=== PATIENT | male | born 1940 | race Caucasian/White ===

== ENCOUNTER 2019-09-17 15:39 | Emergency (ER) | payer MEDICARE, BC ==
[2019-09-17] MEDS ORDERED: Ondansetron 4 MG/2 ML SDV IVPUSH ONE (15:52)
[2019-09-17] MEDS ORDERED: Sodium Chloride 0.9% 1,000 ML IV ONE (15:52)
[2019-09-17] MEDS ORDERED: Ketorolac 30 MG/ML SDV IVPUSH ONE (15:53)
--- NOTE | 2019-09-17 15:55 | EDM.PDOC ---
ED HPI GENERAL MEDICAL PROBLEM - General Chief Complaint: Genitourinary Problem Stated Complaint: L SIDE PAIN Time Seen by Provider: 09/17/19 15:49 Source of Information: Reports: Patient History Limitations: Reports: No Limitations - History of Present Illness Onset: Today Onset Date: 09/17/19 Onset Time: 03:00 Duration: Getting Worse Location: Reports: Abdomen, Back (L flank) Quality: Reports: Stabbing Severity: Severe Associated Symptoms: Reports: Nausea/Vomiting. Denies: Fever/Chills Left Flank Pain Score (Numeric/FACES): 10 - Related Data Allergies Allergy/AdvReac Type Severity Reaction Status Date / Time No Known Allergies Allergy Verified 09/17/19 15:57 Home Meds: Home Meds Abriaterone Acetate 250 Mg 4 cap PO DAILY 09/17/19 [History] Aspirin [Aspir 81] 81 mg PO DAILY 09/17/19 [History] Atrovastatin Calcium 20 Mg 20 mg PO BEDTIME 09/17/19 [History] Calcium Carbonate/Vitamin D3 [Calcium 600 + Vit D Tablet] 1 each PO DAILY 09/17/19 [History] Metoprolol Tartrate 25 mg PO BID 09/17/19 [History] Omeprazole 40 mg PO ACBREAKFAST 09/17/19 [History] lisinopriL [Lisinopril] 10 mg PO DAILY 09/17/19 [History] predniSONE 5 mg PO BID 09/17/19 [History] ED ROS GENERAL - Review of Systems Review Of Systems: See Below Constitutional: Denies: Fever GI/Abdominal: Reports: Abdominal Pain : Reports: Flank Pain (L). Denies: Dysuria, Hematuria ED EXAM, RENAL/ - Physical Exam Exam: See Below Exam Limited By: No Limitations General Appearance: Alert, WD/WN, Severe Distress Ears: Normal External Exam Nose: Normal Inspection Throat/Mouth: Other (Dry) Neck: Normal Inspection Respiratory/Chest: No Respiratory Distress GI/Abdominal: Soft, Non-Tender Back Exam: CVA Tenderness (L) Course - Vital Signs Text/Narrative:: Initial differential diagnosis: Kidney stone, pyelonephritis, extreme back strain. CT scan shows massive distention of the collecting system of the left kidney with air consistent with infected hydronephrosis and rupture of the collecting system . We'll start IV antibiotic here and request transfer to [facility]. Last Recorded V/S: Last Vital Signs Temp 37.3 C 09/17/19 15:53 Pulse 89 09/17/19 17:34 Resp 14 09/17/19 16:58 BP 107/63 09/17/19 17:34 Pulse Ox 93 L 09/17/19 17:34 - Orders/Labs/Meds Orders: Active Orders 24 hr Category Date Time Status UA W/MICROSCOPIC [URIN] Urgent Lab 09/17/19 15:52 Ordered Labs: Laboratory Tests 09/17/19 09/17/19 09/17/19 Range/Units 15:52 16:05 16:05 WBC 14.8 H (4.5-11.0) K/uL RBC 5.55 (4.30-5.90) M/uL Hgb 14.8 (12.0-15.0) g/dL Hct 46.7 (40.0-54.0) % MCV 84 (80-98) fL MCH 27 (27-31) pg MCHC 32 (32-36) % Plt Count 223 (150-400) K/uL PT 10.7 (9.5-12.0) sec INR 0.98 (0.80-1.20) Sodium 139 L (140-148) mmol/L Potassium 3.8 (3.6-5.2) mmol/L Chloride 105 (100-108) mmol/L Carbon Dioxide 23 (21-32) mmol/L Anion Gap 14.8 H (5.0-14.0) mmol/L BUN 24 H (7-18) mg/dL Creatinine 1.6 H (0.8-1.3) mg/dL Est Cr Clr Drug Dosing 40.53 mL/min Estimated GFR (MDRD) 42 L (>60) Glucose 192 H (74-106) mg/dL Lactic Acid (0.4-2.0) mmol/L Calcium 8.3 L (8.5-10.1) mg/dL Total Bilirubin 0.6 (0.2-1.0) mg/dL AST 13 L (15-37) U/L ALT 16 (12-78) U/L Alkaline Phosphatase 129 H (46-116) U/L Total Protein 6.2 L (6.4-8.2) g/dL Albumin 3.0 L (3.4-5.0) g/dL Globulin 3.2 (2.3-3.5) g/dL Albumin/Globulin Ratio 0.9 L (1.2-2.2) 09/17/19 Range/Units 16:05 WBC (4.5-11.0) K/uL RBC (4.30-5.90) M/uL Hgb (12.0-15.0) g/dL Hct (40.0-54.0) % MCV (80-98) fL MCH (27-31) pg MCHC (32-36) % Plt Count (150-400) K/uL PT (9.5-12.0) sec INR (0.80-1.20) Sodium (140-148) mmol/L Potassium (3.6-5.2) mmol/L Chloride (100-108) mmol/L Carbon Dioxide (21-32) mmol/L Anion Gap (5.0-14.0) mmol/L BUN (7-18) mg/dL Creatinine (0.8-1.3) mg/dL Est Cr Clr Drug Dosing mL/min Estimated GFR (MDRD) (>60) Glucose (74-106) mg/dL Lactic Acid 2.2 H (0.4-2.0) mmol/L Calcium (8.5-10.1) mg/dL Total Bilirubin (0.2-1.0) mg/dL AST (15-37) U/L ALT (12-78) U/L Alkaline Phosphatase (46-116) U/L Total Protein (6.4-8.2) g/dL Albumin (3.4-5.0) g/dL Globulin (2.3-3.5) g/dL Albumin/Globulin Ratio (1.2-2.2) Meds: Medications Discontinued Medications Generic Name Dose Route Start Last Admin Trade Name Freq PRN Reason Stop Dose Admin Hydromorphone HCl 0.5 mg 09/17/19 16:32 09/17/19 16:40 Dilaudid IVPUSH 09/17/19 16:33 0.5 mg ONETIME ONE Administration Sodium Chloride 1,000 mls @ 999 mls/hr 09/17/19 15:52 09/17/19 16:01 Normal Saline IV 09/17/19 16:52 999 mls/hr .BOLUS ONE Administration Ceftriaxone Sodium 1 gm/ 50 mls @ 100 mls/hr 09/17/19 17:15 09/17/19 17:22 Sodium Chloride IV 09/17/19 17:44 100 mls/hr ONETIME ONE Administration Ketorolac Tromethamine 30 mg 09/17/19 15:53 09/17/19 16:01 Toradol IVPUSH 09/17/19 15:54 30 mg ONETIME ONE Administration Ondansetron HCl 4 mg 09/17/19 15:52 09/17/19 16:01 Zofran IVPUSH 09/17/19 15:53 4 mg ONETIME ONE Administration Departure - Departure Time of Disposition: 17:57 Disposition: DC/Tfer to [facility] Clinical Impression: Kidney stone, Pyelonephritis - Discharge Information Referrals: PCP,None [Primary Care Provider] - Forms: ED Department Discharge Sepsis Event Note (ED) - Focused Exam Vital Signs: Vital Signs Temp Pulse Resp BP Pulse Ox 09/17/19 17:34 89 107/63 93 L 09/17/19 16:58 86 14 126/74 91 L 09/17/19 15:53 37.3 C 85 22 H 140/86 92 L - My Orders Last 24 Hours: My Active Orders 09/17/19 15:52 UA W/MICROSCOPIC [URIN] Urgent - Assessment/Plan Last 24 Hours: My Active Orders 09/17/19 15:52 UA W/MICROSCOPIC [URIN] Urgent
[2019-09-17] MEDS ORDERED: HYDROmorphone 0.5 MG/0.5 ML Syringe IVPUSH ONE (16:32)
--- NOTE | 2019-09-17 16:59 | CRLCT ---
INDICATION: Left flank pain. Possible calculus. COMPARISON: None available TECHNIQUE: CT examination of the abdomen and pelvis was performed without contrast enhancement using 3 mm thick axial sections from the lung bases through the pubic symphysis. Oral contrast was not administered. Please note that all CT scans at this facility use dose modulation, iterative reconstruction, and/or weight-based dosing when appropriate to reduce radiation dose to as low as reasonably achievable. FINDINGS: There is massive dilatation of the left collecting system containing gas with dissection of gas posteriorly into the interpolar renal parenchyma and posterior perinephric space. There is moderate posterior perinephric soft tissue stranding around the gas. The findings are that of an infected hydronephrotic collecting system with rupture into the perinephric space through the renal parenchyma. There is a small amount of free fluid inferior and posterior to the spleen associated with the left collecting system rupture. There is moderate dilatation of the left ureter extending to a Steinstrasse in the left UVJ, with 4 calculi measuring 3-4 millimeters in caliber immediately adjacent to each other. The left renal parenchyma is prominently thinned around the distended collecting system. There are several nonobstructive calculi located in the lower pole calices of the left kidney as well as a few nonobstructive calculi in the dependent portion of the dilated renal pelvis. In the abdomen, the unenhanced liver has a nonspecific 8 millimeter low-density region in the posterior-lateral subcapsular posterior segment of the right lobe of the liver, segment 6. This is probably a cyst. The rest of the liver is normal in appearance. The spleen, pancreas, and adrenals are normal in appearance. The right kidney has a mildly high density nodule in the anterior-lateral interpolar cortex measuring 10 millimeters in diameter, probably a high-density cyst. There is mild right hydronephrosis with mild dilatation of the right renal pelvis, without dilatation of the right ureter, findings of mild right UPJ stenosis. There is no sign of any right-sided renal or ureteral calculi. There is mild cholelithiasis, with a few small dependent calcified gallstones in the gallbladder. There is no sign of acute cholecystitis, with no sign of gallbladder wall thickening or pericholecystic fluid. The abdominal aorta is normal in caliber with no sign of dilatation. There is no sign of retroperitoneal mass or adenopathy. The stomach, loops of small bowel, and colon in the abdomen are normal in appearance. There is a tiny fat containing periumbilical hernia. In the pelvis, the appendix is nonvisualized, but there is no sign of an inflammatory process in the area of the appendix. The loops of small bowel and colon in the pelvis are normal in appearance. The prostate is absent, with multiple surgical clips seen in the prostate bed. There is no sign of any residual mass in the area of the prostate bed. The urinary bladder is normal in appearance. There is no sign of pelvic or inguinal mass or adenopathy. There is no sign of free air in the abdomen. There is no sign of any free air or free fluid in the pelvis. Pelvis. There is mild patchy and linear atelectasis in the posterior lung bases. There is a noncalcified 8 millimeter pleural nodule in the posterior-lateral right lower lobe, probably an area of scarring from previous inflammatory disease. There is moderate sclerosis of the posterior right pubic symphysis, inferior left femoral head, and right inferior pubic ramus consistent with metastatic prostate carcinoma. A small sclerotic lesion is seen in the left L2 vertebral body consistent with a metastatic lesion or bone island. IMPRESSION: Massive distention of the collecting system of the left kidney with air, consistent with infected hydronephrosis. Air extends posteriorly through the interpolar renal parenchyma to streaky air and fluid in the posterior perinephric space, consistent with rupture of the collecting system. Small amount of free fluid in the left abdomen adjacent to the inferior spleen. No signs of any free air in the abdomen or free fluid or free air in the pelvis. Moderate dilatation of the left ureter extending to Steinstrasse of the UVJ, with 4 calculi measuring 3-4 millimeters in diameter located adjacent to each other at the UVJ. CT of the abdomen shows several other nonobstructive calculi in the left renal collecting system and dilated left renal pelvis. Right kidney has a small probable high-density cyst mild right UPJ stenosis. Mild cholelithiasis without acute cholecystitis. CT of the pelvis shows changes of prostatectomy with no sign of any residual or recurrent mass in the prostate bed. Sclerotic metastatic lesions in the pelvis and left hip as described above consistent with prostate metastasis. 8 millimeter pleural nodule in the posterior-lateral right lower lobe, nonspecific. Please note that all CT scans at this facility use dose modulation, iterative reconstruction, and/or weight-based dosing when appropriate to reduce radiation dose to as low as reasonably achievable. Dictated by Edwin Oneal MD @ Sep 17 2019 4:41PM Signed by Dr. Edwin Oneal @ Sep 17 2019 4:58PM
[2019-09-17] MEDS ORDERED: cefTRIAXone 1 GM in Sodium Chloride 0.9% 50 ML IV ONE (17:15)
[2019-09-17] MEDS ORDERED: HYDROmorphone 1 MG/ML Syringe IVPUSH ONE (18:22)
[2019-09-17] MEDS ORDERED: HYDROmorphone 1 MG/ML Syringe ONE (18:23)
== END 2019-09-17 18:30 ==
LOC: JP.ED 15:39
DX: N12 Tubulo-interstitial nephritis, not specified as acute or chronic (principal); N13.2 Hydronephrosis with renal and ureteral calculous obstruction; Z79.82 Long term (current) use of aspirin; Z79.899 Other long term (current) drug therapy
CPT/HCPCS: 36415; 74176; 80053; 83605; 85027; 85610; 96361; 96365; 96375; 96376; 99285; J0696; J1170; J1885; J2405; J7030; J7050

== ENCOUNTER 2020-06-28 09:59 | Emergency (ER) | payer MEDICARE, BC ==
--- NOTE | 2020-06-28 12:08 | EDM.PDOC ---
ED HPI GENERAL MEDICAL PROBLEM - General Chief Complaint: Genitourinary Problem Stated Complaint: URINE SAMPLE Time Seen by Provider: 06/28/20 12:05 Source of Information: Reports: Patient, Family, RN Notes Reviewed History Limitations: Reports: No Limitations - History of Present Illness INITIAL COMMENTS - FREE TEXT/NARRATIVE: 79-year-old gentleman presents emergency department today complaint of burning in urination he does have a nephrostomy tube in place he follows with [facility] he did contact them this morning they are concerned that the tube may be infected they would like it sample from the tube itself. - Related Data Allergies Allergy/AdvReac Type Severity Reaction Status Date / Time cefdinir Allergy Intermediate Itching Verified 06/28/20 10:19 amiodarone Allergy Unknown Other Verified 06/28/20 10:19 levofloxacin Allergy Anaphylactic Verified 06/28/20 10:19 Shock Home Meds: Home Meds Abriaterone Acetate 250 Mg 4 cap PO DAILY 09/17/19 [History] Aspirin [Aspir 81] 81 mg PO DAILY 09/17/19 [History] Atrovastatin Calcium 20 Mg 20 mg PO BEDTIME 09/17/19 [History] Omeprazole 40 mg PO ACBREAKFAST 09/17/19 [History] lisinopriL [Lisinopril] 5 mg PO DAILY 09/17/19 [History] predniSONE 5 mg PO BID 09/17/19 [History] Metoprolol Succinate 50 mg PO BEDTIME 06/28/20 [History] Past Medical History HEENT History: Reports: Cataract Cardiovascular History: Reports: CAD, High Cholesterol, Hypertension, SC Respiratory History: Reports: None Gastrointestinal History: Reports: GERD Genitourinary History: Reports: Urinary Incontinence, UTI, Recurrent, Other (See Below) Other Genitourinary History: prostrate cancer Musculoskeletal History: Reports: Arthritis, Fracture Neurological History: Reports: None Psychiatric History: Reports: None Endocrine/Metabolic History: Reports: None Hematologic History: Reports: None Immunologic History: Reports: None Oncologic (Cancer) History: Reports: Prostate Dermatologic History: Reports: None - Infectious Disease History Infectious Disease History: Reports: Chicken Pox, Shingles - Past Surgical History Head Surgeries/Procedures: Reports: None HEENT Surgical History: Reports: Cataract Surgery, Naso-Sinus Surgery Cardiovascular Surgical History: Reports: Coronary Artery Bypass Other Cardiovascular Surgeries/Procedures: cabg 2011 GI Surgical History: Reports: Appendectomy Male Surgical History: Reports: Prostatectomy, Renal Calculus Oncologic Surgical History: Reports: Other (See Below) Other Oncologic Surgeries/Procedures: prostrate. radiation Social & Family History - Tobacco Use Tobacco Use Status *Q: Never Tobacco User - Caffeine Use Caffeine Use: Reports: Coffee - Recreational Drug Use Recreational Drug Use: No ED ROS GENERAL - Review of Systems Review Of Systems: See Below Constitutional: Reports: No Symptoms. Denies: Fever : Reports: Dysuria ED EXAM, GENERAL - Physical Exam Exam: See Below Exam Limited By: No Limitations General Appearance: Alert, WD/WN, No Apparent Distress Respiratory/Chest: No Respiratory Distress Course - Vital Signs Last Recorded V/S: Last Vital Signs Temp 95.2 F L 06/28/20 10:14 Pulse 81 06/28/20 10:14 Resp 16 06/28/20 10:14 BP 142/81 H 06/28/20 10:14 Pulse Ox 98 06/28/20 10:14 - Orders/Labs/Meds Orders: Active Orders 24 hr Category Date Time Status CULTURE WOUND + SMEAR [RM] Stat Lab 06/28/20 10:50 Results Labs: Laboratory Tests 06/28/20 Range/Units 11:03 Urine Color Yellow (YELLOW) Urine Appearance Turbid A (CLEAR) Urine pH 7.0 (5.0-8.0) Ur Specific [place] 1.025 (1.008-1.030) Urine Protein >=300 H (NEGATIVE) mg/dL Urine Glucose (UA) Negative (NEGATIVE) mg/dL Urine Ketones Negative (NEGATIVE) mg/dL Urine Occult Blood Large H (NEGATIVE) Urine Nitrite Negative (NEGATIVE) Urine Bilirubin Negative (NEGATIVE) Urine Urobilinogen 0.2 (0.2-1.0) EU/dL Ur Leukocyte Esterase Small H (NEGATIVE) Urine RBC 5-10 H (0-5) Urine WBC 10-20 H (0-5) Ur Epithelial Cells Not seen Amorphous Sediment Not seen Urine Bacteria Few Urine Mucus Not seen Urinalysis Comment Departure - Departure Time of Disposition: 12:07 Disposition: Home, Self-Care 01 Condition: Fair Clinical Impression: UTI, Urinary tract infectious disease Instructions: Urinary Tract Infection, Adult Referrals: [facility] [Other] Additional Instructions: Take full course of antibiotics, please keep your follow-up appointment with your primary care and the [facility] Sepsis Event Note (ED) - Evaluation Sepsis Screening Result: No Definite Risk - Focused Exam Vital Signs: Vital Signs Temp Pulse Resp BP Pulse Ox 06/28/20 10:14 95.2 F L 81 16 142/81 H 98 - My Orders Last 24 Hours: My Active Orders 06/28/20 10:50 CULTURE WOUND + SMEAR [RM] Stat - Assessment/Plan Last 24 Hours: My Active Orders 06/28/20 10:50 CULTURE WOUND + SMEAR [RM] Stat Assessment:: Assessment Acuity = acute Site and laterality = urinary tract infection complicated gentleman with nephrostomy tube in place Etiology = probable bacterial cause Manifestations = dysuria Location of injury = Home Lab values = urinalysis reveals 5-10 RBCs consistent with hematuria 10-20 WBCs consistent with pyuria few bacteria cultures are pending Plan His primary care has called in antibiotics of Bactrim DS 1 tab p.o. twice daily x10 days he has a follow-up with the [facility] next week This note was dictated using [employer] voice recognition software please call with any questions on syntax or grammar.
== END 2020-06-28 12:14 | disposition home or self-care (01) ==
LOC: JP.ED 09:59
DX: N39.0 Urinary tract infection, site not specified (principal); I25.10 Atherosclerotic heart disease of native coronary artery without angina pectoris; E78.00 Pure hypercholesterolemia, unspecified; I10 Essential (primary) hypertension; I25.2 Old myocardial infarction; K21.9 Gastro-esophageal reflux disease without esophagitis; M19.90 Unspecified osteoarthritis, unspecified site; Z88.1 Allergy status to other antibiotic agents; Z88.8 Allergy status to other drugs, medicaments and biological substances; Z79.82 Long term (current) use of aspirin; Z79.899 Other long term (current) drug therapy
CPT/HCPCS: 81001; 87070; 87077; 87086; 87088; 87186; 87205; 99283